=== PATIENT | female | born 2000 | race Asian ===

== ENCOUNTER 2024-05-24 12:41 | Emergency (ER) | payer MEDICAID ==
[~2024-05-24] VITALS: Ht 157.5 cm; Wt 49.0 kg
[2024-05-24 12:45] VITALS: BP 117/83; TEMP 97.6; O2SAT 98
== END 2024-05-24 13:30 | disposition home or self-care (01) ==
LOC: ER 12:56
DX: I88.8 Other nonspecific lymphadenitis (principal); F17.200 Nicotine dependence, unspecified, uncomplicated; Z87.39 Personal history of other diseases of the musculoskeletal system and connective tissue; Z60.2 Problems related to living alone